=== PATIENT | female | born 1970 | race Caucasian/White ===

== ENCOUNTER 2018-10-21 17:40 | Emergency (ER) | payer MEDICAID ==
[~2018-10-21] VITALS: Ht 147.3 cm; Wt 54.4 kg
[~2018-10-21 17:40] MED LIST: LEVO25TA7 PO; SUMA25TA
[2018-10-21 17:53] VITALS: BP_SYST 124
[2018-10-21 18:32] LABS: BILIRUBIN,URINE NEGATIVE (NEGATIVE); BLOOD, URINE NEGATIVE (NEGATIVE); CLARITY/URINE SL HAZY (CLEAR); COLOR,URINE YELLOW (YELLOW); GLUCOSE,URINE NEGATIVE (NEGATIVE); KETONES,URINE NEGATIVE (NEGATIVE); LEUKOCYTE ESTERASE ,URINE NEGATIVE (NEGATIVE); NITRITE, URINE NEGATIVE (NEGATIVE); PROTEIN URINE NEGATIVE (NEGATIVE); UROBILINOGEN,URINE 0.2 (0.2-1.0)
[2018-10-21] MEDS ORDERED: MECLIZINE HCL 25 MG TABLET (ANITVERT) PO ONE (20:15)
[2018-10-21 20:55] LABS: CALCIUM 8.8 mg/dL (8.4-11.0); CREATININE 0.77 mg/dL (0.55-1.30); POTASSIUM 4.4 mmol/L (3.5-5.1)
[2018-10-21 20:59] LABS: PROTHROMBIN TIME 10.5 SECS (9.5-12.5)
[2018-10-21 21:01] LABS: HEMATOCRIT 38.7 % (36-48); HEMOGLOBIN 12.8 g/dL (12.0-16.0); MEAN CORPUSCULAR HEMOGLOBIN 29 pg (27-31); MEAN CORPUSCULAR HGB CONC 33 % (32-36); MEAN CORPUSCULAR VOLUME 87 fL (79.0-98.0); RED BLOOD CELL COUNT(AUTO) 4.43 MIL/uL (4.2-6.2); RED CELL DISTRIBUTION WIDTH 13.8 % (9.0-15.0); WHITE BLOOD COUNT (AUTO) 8.9 K/uL (4.8-10.8)
[2018-10-21 21:02] LABS: BASOPHILS # (AUTO) 0.1 K/uL (0.0-0.2); BASOPHILS % (AUTO) 0.9 % (0.0-2.0); EOSINOPHILS # (AUTO) 0.7 K/uL (0.0-0.4); EOSINOPHILS % (AUTO) 7.7 % (0.0-4.0); LYMPHOCYTES # (AUTO) 2.1 K/uL (1.0-5.5); LYMPHOCYTES % (AUTO) 23.2 % (20.5-51.5); MONOCYTES # (AUTO) 0.8 K/uL (0.0-1.0); MONOCYTES % (AUTO) 8.8 % (1.7-9.3); NEUTROPHILS # (AUTO) 5.3 K/uL (1.8-7.7); NEUTROPHILS % (AUTO) 59.4 % (40.0-70.0); PLATELET COUNT (AUTO) 331 K/uL (130-430)
[2018-10-21 21:10] LABS: ALBUMIN 3.8 g/dL (3.4-4.8); THYROID STIMULATING HORMONE 32.36 uIu/mL (0.34-4.82); TOTAL BILIRUBIN 0.3 mg/dL (0.0-1.0)
[2018-10-21] MEDS ORDERED: LEVOTHYROXINE SODIUM 0.1 MG TABLET PO ONE (21:30)
[2018-10-21] MEDS ORDERED: LEVOTHYROXINE SODIUM 0.1 MG TABLET ONE (22:00)
[2018-10-21 22:09] VITALS: BP_SYST 124
== END 2018-10-21 22:09 | disposition home or self-care (01) ==
LOC: SED 17:40
DX: R42 Dizziness and giddiness (principal); E03.9 Hypothyroidism, unspecified; Z79.899 Other long term (current) drug therapy
CPT/HCPCS: 36415; 70450; 80053; 81003; 84443; 85025; 85610; 85730; 99284; J8597

== ENCOUNTER 2020-01-28 03:15 | Emergency (ER) | payer MEDICAID ==
[~2020-01-28] VITALS: Ht 149.9 cm; Wt 63.5 kg
[2020-01-28 04:21] VITALS: BP_SYST 117
--- NOTE | 2020-01-28 04:40 | NUR ---
PT AAO AND AMBULATORY C/O ACUTE HEADACHE PAIN SINCE LAST NOC. PT REPORTS 10/10 PAIN SCALE. PT SUFFERS FROM CHRONIC MIGRAINES.
--- NOTE | 2020-01-28 04:42 | NUR ---
PT TO BE EVALUATED IN TRIAGE BY MD, NO ER BEDS CURRENTLY.
--- NOTE | 2020-01-28 04:45 | NUR ---
ER Dr. Fowler at bedside examining patient.
[2020-01-28] MEDS ORDERED: METOCLOPRAMIDE HCL 10 MG/2 ML VIAL IM ONE (05:00)
[2020-01-28] MEDS ORDERED: DEXAMETHASONE SOD PHOSPHATE 10 MG/ML VIAL IM ONE (05:00)
[2020-01-28 05:08] VITALS: BP_SYST 117
--- NOTE | 2020-01-28 05:08 | NUR ---
Patient given written and verbal discharge instructions and verbalizes understanding. ER MD discussed with patient the results and treatment provided. Patient in stable condition. ID arm band removed. Patient educated on pain management and to follow up with PMD. Pain Scale 2/10. Opportunity for questions provided and answered.
== END 2020-01-28 05:08 | disposition home or self-care (01) ==
LOC: SED 03:15
DX: G43.901 Migraine, unspecified, not intractable, with status migrainosus (principal); E07.9 Disorder of thyroid, unspecified
CPT/HCPCS: 96372; 99284; J1100; J2765

== ENCOUNTER 2022-05-25 08:17 | Emergency (ER) | payer MEDICAID ==
[~2022-05-25] VITALS: Ht 147.3 cm; Wt 59.0 kg
--- NOTE | 2022-05-25 08:30 | NUR ---
Patient to ER bed 03 to gown for evaluation. Side rails up. Report received from ELLIE Jordan.
[2022-05-25 08:34] VITALS: BP_SYST 126
--- NOTE | 2022-05-25 08:35 | NUR ---
PATIENT ARRIVED FROM HOME C/O MIGRAINE SINCE THIS AM. PATIENT STATES SHE HAS HX OF MIGRAINES THAT ARE EFFECTIVELY AND USUALLY TREATED WITH USE OF IMITREX. PATIENT STATES SHE WAS OUT OF THE MEDICATION AT THIS TIME AND CAME TO ED FOR INTERVENTION. PATIENT IS CALM AND COOPERATIVE, A&OX4. CARE TO BE PROVIDED ORDERED.
--- NOTE | 2022-05-25 08:40 | NUR ---
ER Dr. Mcneil at bedside examining patient.
[2022-05-25] MEDS ORDERED: DIPHENHYDRAMINE INJ 50 MG/ML VIAL IVP ONE (09:00)
[2022-05-25] MEDS ORDERED: NACL 0.9% 1,000 ML IV ONE (09:00)
[2022-05-25] MEDS ORDERED: PROCHLORPERAZINE EDISYLATE 10 MG/2 ML VIAL IVP ONE (09:00)
[2022-05-25 09:17] LABS: BILIRUBIN,URINE NEGATIVE (NEGATIVE); CLARITY/URINE CLEAR (CLEAR); COLOR,URINE YELLOW (YELLOW); GLUCOSE,URINE NEGATIVE (NEGATIVE); KETONES,URINE NEGATIVE (NEGATIVE); LEUKOCYTE ESTERASE ,URINE NEGATIVE (NEGATIVE); NITRITE, URINE NEGATIVE (NEGATIVE); PROTEIN URINE NEGATIVE (NEGATIVE); UROBILINOGEN,URINE 0.2 (0.2-1.0)
[2022-05-25 09:21] LABS: BLOOD, URINE TRACE (NEGATIVE)
[2022-05-25 09:36] LABS: BACTERIA,URINE None Seen /HPF (None Seen); WBC,URINE 0-3 /HPF (0-3)
--- NOTE | 2022-05-25 10:42 | NUR ---
Patient given written and verbal discharge instructions and verbalizes understanding. ER DR. MARIEL LEVI discussed with patient the results and treatment provided. Patient in stable condition. ID arm band removed. IV catheter removed intact and dressing applied, no active bleeding. Patient educated on pain management and to follow up with PMD. Pain Scale 2/10. Opportunity for questions provided and answered. Medication side effect fact sheet provided.
== END 2022-05-25 10:41 | disposition home or self-care (01) ==
LOC: SED 08:17
DX: G43.909 Migraine, unspecified, not intractable, without status migrainosus (principal); Z79.899 Other long term (current) drug therapy
CPT/HCPCS: 99284; 96374; 96361; 96375; 81000; J1200; J0780; J7030